=== PATIENT | female | born 1935 | race Two or more races ===

== ENCOUNTER 2017-05-06 05:13 | Emergency (ER) | payer SELFPAY ==
[~2017-05-06] VITALS: Ht 157.5 cm; Wt 70.8 kg
[2017-05-06 05:32] VITALS: BP 178/78
== END 2017-05-06 05:49 | disposition left against medical advice (07) ==
LOC: ER 05:13
DX: R11.2 Nausea with vomiting, unspecified (principal); R10.9 Unspecified abdominal pain; Z53.21 Procedure and treatment not carried out due to patient leaving prior to being seen by health care provider